=== PATIENT | female | born 1985 | race Caucasian/White ===

== ENCOUNTER 2017-02-02 08:58 | Emergency (ER) | payer MEDICAID ==
[~2017-02-02] VITALS: Ht 170.2 cm; Wt 108.9 kg
[~2017-02-02 08:58] MED LIST: FLEXERIL10 MG PO; NAPROSYN 500MG500 MG PO; PRENATAL PLUS1 TA1 PO; SEPTRA DS 800 M1 TAB PO
--- OUTSIDE RECORDS SUMMARY | 2017-02-02 09:04 | External Medical Summary Rpt | CCD ---
Author Author , [employer] Organization [employer] Address Unknown Phone [email or web address] Immunization Name Date Rout CVX Reac Dose Comm Prov Is Faci e tion ent ider Refu lity Give sed n Tdap 12-0 115 999 Hist H141 No H141 , 7-20 oric Adso 10 al rbed Info rmat ion - Sour ce Unsp ecif ied
--- OUTSIDE RECORDS SUMMARY | 2017-02-02 09:04 | External Medical Summary Rpt | CCD ---
Demographics Preferred Language Senegalese Marital Status Unknown Christian Affiliation Unknown Race Unknown Ethnic Group Unknown Author Author , [employer] STROUD Address Unknown Phone [email or web address] Care Team Providers Care Credit Products Officer Name Role Phone [facility] Unavailable Unavailable INC, [facility] Purpose Continuity of Care Document - 12-03-2010 through 2016 Medications Na ND Rx Da Fi Fi Am Da Di Ph RX Ph St me C No te ll ll ou ys ag ar # ys at rm s nt no ma ic us Or Da si cy ia de te s n re d AM 65 10 10 0 30 10 GR 19 PA Ac OX 86 -0 -0 .0 AN 14 TE ti IC 20 6- 6- 00 T 52 L ve IL 01 20 20 CO 8 LI 70 11 11 UN RA N 5 TY L [address] MG UG S CA IN PS C UL E ZA 13 10 10 12 30 30 GR 19 PA Ac TE 81 -0 -0 .0 AN 14 TE ti AN 10 6- 6- 00 T 52 L ve -P 58 20 20 CO 9 N 19 11 11 UN RA TA 0 TY L BL ET DR UG S IN C
--- OUTSIDE RECORDS SUMMARY | 2017-02-02 09:04 | External Medical Summary Rpt | CCD ---
Author Author , [employer] STROUD Address Unknown Phone [email or web address] Care Team Providers Care Investigator Claims Name Role Phone [facility] Unavailable Unavailable INC, [facility] Purpose Continuity of Care Document - 12-03-2010 through 2016 Problems Code Diagnosis DOS Provider Status N39.0 URINARY TRACT INFECTION, SITE NOT SPECIFIED Medications Na ND Rx Da Fi Fi Am Da Di Ph RX Ph St me C No te ll ll ou ys ag ar # ys at rm s nt no ma ic us Or Da si cy ia de te s n re d ZA 13 10 10 12 30 30 GR 19 PA Ac TE 81 -0 -0 .0 AN 14 TE ti AN 10 6- 6- 00 T 52 L ve -P 58 20 20 CO 9 N 19 11 11 UN RA TA 0 TY L BL ET DR UG S IN C AM 65 10 10 0 30 10 [...]
--- OUTSIDE RECORDS SUMMARY | 2017-02-02 09:04 | External Medical Summary Rpt | CCD ---
Author Author , [employer] Organization [employer] Address Unknown Phone [email or web address] Immunization Name Date Rout CVX Reac Dose Comm Prov Is Faci e tion ent ider Refu lity Give sed n Tdap 12-0 115 999 Hist H141 No H141 , 7-20 oric Adso 10 al rbed Info rmat ion - Sour ce Unsp ecif ied
--- OUTSIDE RECORDS SUMMARY | 2017-02-02 09:04 | External Medical Summary Rpt | CCD ---
Author Author , [employer] STROUD Address Unknown Phone [email or web address] Care Team Providers Care Biofuels Production Technician Name Role Phone [facility] Unavailable Unavailable INC, [facility] Purpose Continuity of Care [...]
--- OUTSIDE RECORDS SUMMARY | 2017-02-02 09:04 | External Medical Summary Rpt | CCD ---
Demographics Preferred Language Dominican Marital Status Unknown Lutheran Affiliation Unknown Race Unknown Ethnic Group Unknown Author Author , [employer] STROUD Address Unknown Phone [email or web address] Care Team Providers Care Tobacco Checkout Clerk Name Role Phone [facility] Unavailable Unavailable INC, [facility] Purpose Continuity of [...]
--- OUTSIDE RECORDS SUMMARY | 2017-02-02 09:05 | External Medical Summary Rpt ---
Author Author DENAAL Paulino, [employer] Organization [employer] Address Unknown Phone Unavailable Results UA Observa Value Referen Units Interpr Notes Date tion ce etation Range UA Yellow No No No No Jan 22 Color informa informa informa informa 2016 tion in tion in tion in tion in 12:20 source source source source AM data data data data UA Slightl Clear No Abnorma No Jan 22 Appear y Hazy informa l informa 2015 tion in tion in 12:20 source source AM data data UA Negativ Negativ No No No Jan 22 Glucose e e informa informa informa 2016 tion in tion in tion in 12:20 source source source AM data data data UA Negativ Negativ No No No Jan 22 Ketones e e informa informa informa 2016 tion in tion in tion in 12:20 source source source AM data data data UA Trace-i Negativ No Abnorma No Jan 22 Blood ntact e informa l informa 2016 tion in tion in 12:20 source source AM data data UA pH 7.0 5.0 - No No Referen Jan 22 8.0 informa informa ce 2016 tion in tion in range 12:20 source source valid AM data data for random specime ns only. UA Negativ Negativ No No No Jan 22 Protein e e informa informa informa 2016 tion in tion in tion in 12:20 source source source AM data data data UA 0.2 <=1 No No No Jan 22 Urobili E.U./dL E.U./dL informa informa informa 2016 nogen tion in tion in tion in 12:20 source source source AM data data data UA Negativ Negativ No No No Jan 22 Nitrite e e informa informa informa 2016 tion in tion in tion in 12:20 source source source AM data data data UA Leuk Small Negativ No Abnorma No Jan 22 Est e informa l informa 2016 tion in tion in 12:20 source source AM data data UA Spec 1.020 1.001 - No No Referen Jan 22 Grav 1.035 informa informa ce 2016 tion in tion in range 12:20 source source valid AM data data for random specime ns only. UA WBC 10-20 0 - 4 /HPF Abnorma No Jan 22 l informa 2016 tion in 12:20 source AM data UA RBC 0-2 0 - 3 /HPF No No Jan 22 informa informa 2016 tion in tion in 12:20 source source AM data data UA 1+ No No No No Jan 22 Squam informa informa informa informa 2016 Epi tion in tion in tion in tion in 12:20 source source source source AM data data data data UA Trace No No No No Jan 22 Bacteri informa informa informa informa 2016 a tion in tion in tion in tion in 12:20 source source source source AM data data data data
[2017-02-02 09:32] LABS: URINE BILIRUBIN - DIPSTICK NEGATIVE (NEG); URINE BLOOD NEGATIVE (NEG)
[2017-02-02] MEDS ORDERED: AUGMENTIN 875-1 EACH PO (09:37)
[2017-02-02] MEDS ORDERED: PYRIDIUM200 M2 PO (09:37)
[2017-02-02] MEDS ORDERED: FLONASE 50 MCG16 GM (09:37)
[2017-02-02 09:38] VITALS: BP 128/69
--- NOTE | 2017-02-02 09:38 | Urgent Treatment Center Report ---
History of Present Issue Date/Time Seen by Provider 02/02/17 0910 Visit Reason Pt arrived:Walked Presenting Problem:SINUS PRESSURE AND CONGESTION WITH A COUGH FOR A FEW DAYS. OF YESTERDAY PT STATES SHE THINKS SHE HAS A UTI. Location if Accident: Onset of symptoms date/time:/ or onset unknown for:MEDICAL HX UNKNOWN Have you (or family members/close friends) recently traveled outside the [place]? N If Yes, where/when: Have you had exposure to infectious disease within the past month? TB? Other? Specify: c/o "I think I have a sinus infection and UTI" Dyuria since yesterday associated w/ low back pain and urinary frequency. No fever, chills, N/V, abdominal pain. Urine might look darker but no odor. Hasn't taken or tried anything for symptoms. c/o sinus pressure and pain x 5 days. Reports she keeps rhinorrhea, nasal congestion and PND but 5 days ago, quit draining and feels blocked. Pain started. When she does occasionally have drainage, now thick and green. Mild cough. Hasn't taken or tried anything. Source patient Exam Limitations no limitations ALLERGIES Coded Allergies: No Known Allergies (07/15/16) History Medical History General CAD? No Angina: No SC: No Hypertension? No Hyperlipidemia? No CHF? No DVT? No PE? No COPD? No Asthma? No Anemia? No GERD? No Gastric ulcers? No GI Bleed? No Hernia? No Thyroid Problems? No Hypothyroidism? No CVA? No Seizures? No Diabetes? No Renal Insuffiency? No UTI? No Stones? No BPH? No GB Disease: Yes Nephritic Syndrome? No Asplenia? No Hepatitis? No Sickle Cell Disease? No Arthritis? No Migraines? No Cataracts? No Glaucoma? No MRSA? No HIV? No TB? No Anxiety? No Depression? No Cancer? No More? No Immunization HX DT/Tetanus UNKNOWN Flu THISFLUSEA Pneumonia NEVER Surgical Hx Previous Surgery?Y Tubal Ligation [employer] Hx LMP 3 Months Ago Family History Family HX Diabetes Yes CAD Yes Hypertension Yes Hyperlipidemia Yes Cancer Yes TB No Social History Smoking Hx Smoker: Former Smoker Tobacco: No Packs/day 1 1/2 - 2 Packs Alcohol Alcohol: No Review of Systems All Other Systems Reviewed and Negative Constitutional see HPI, denies malaise Eyes denies drainage ENT see HPI, ear pain ("not pain, more pressure"). denies: ear discharge, throat pain. Respiratory cough (mild, intermittent, nonprod), denies shortness of breath, denies wheezing Cardiovascular denies chest pain Gastrointestinal denies no symptoms reported Genitourinary see HPI. denies: discharge, abnormal vaginal bleeding, hematuria. Musculoskeletal see HPI, denies joint pain Skin denies rash Psychiatric/Neurological denies headache Physical Exam Vital Signs Vital Signs Date Time Temp Pulse Resp B/P Pulse O2 O2 Flow FiO2 Ox Delivery Rate 02/02 907 97.3 89 18 128/69 99 General Appearance normal appearance, no apparent distress Eye Exam - bilateral eye normal exam Ear, Nose, Throat romy EACs and TMs unremarkable, nasal congestion, normal pharynx, midl romy maxillary tenderness, moderate romy frontal TTP Neck non-tender, supple Respiratory Status No: respiratory distress, productive cough, non productive cough. Lung Sounds anterior: lungs clear. posterior: lungs clear. bilateral: lungs clear. Cardiovascular regular rate/rhythm, no peripheral edema, no murmur Gastrointestinal normal bowel sounds, non tender, soft, no suprapubic tenderness Back no CVA tenderness Neurologic alert Mental status normal mood/affect Skin normal color, warm/dry Lymphatic no adenopathy Medical Decision Making LABS/Meds/Orders Pt receiving controlled substance in ED? No Results/Orders Laboratory Tests 02/02/17 0910: Urine Color YELLOW, Urine Appearance CLEAR, Urine pH 7.0, Ur Specific [place] 1.020, Urine Protein NEGATIVE, Urine Ketones NEGATIVE, Urine Blood NEGATIVE, Urine Nitrate NEGATIVE, Urine Bilirubin NEGATIVE, Urine Urobilinogen 0.2, Ur Leukocyte Esterase TRACE H, Urine Glucose NEGATIVE Orders Procedure Date/time Status CULTURE, URINE 02/03 932 Active [facility] DIPSTICK 02/02 910 Complete Departure Departure Time of Disposition 33 Disposition DC Home or Self Care(routine) Clinical Impression Primary Impression: Frontal sinusitis Qualifiers: Chronicity: acute Recurrence: non-recurrent Qualified Code: J01.10 - Acute frontal sinusitis, unspecified Condition STABLE Referrals NO REFERRAL See primary care in [place] or return [facility] anytime for new or worsening symptoms, AND in 48 hours for urine culture results Patient Instructions DI for Dysuria -- Child, DI for Sinusitis Additional Instructions * Start antibiotic and be sure to take as ordered for the FULL length of time even if you feel better. Sinus infections do not get better overnight. It may take 2-3 days to notice much improvement so be sure to use conservative measures as discussed for symptoms. * sinus rinses as discussed * Flonase 2 sprays each nostril daily to help with nasal congestion, sinus and ear pressure/inflammation * Lots of fluids * Sleep elevated * Humidifier/vaporizer UTI * increase fluids, Water and NOT soda or tea * No antibiotic specifically for UTI just yet. Lets see what your urine culture shows. Could be due to irritation and not infection. BE SURE to follow up in 48- 72 hours. * pyridium as needed. Remember this will turn your urine ORANGE, this is normal but will stain whatever it gets on. this includes tears and contacts. Try not to wear contacts due to risk of staining orange. Discharge Counseling Counseled pt/family regarding diagnosis, test results, medications/RX, home care, follow up needs Prescriptions Current Visit Scripts Amoxicillin/Potassium Clav (Augmentin 875-125 Tablet) 1 EACH PO BID #20 TAB Fluticasone Propionate (Flonase 50 Mcg Nasal [place]) 2 SPRAY NA DAILY #1 BOT Phenazopyridine HCl (Pyridium) 200 MG PO TIDP PRN dysuria #6 TAB at 0946
== END 2017-02-02 09:38 | disposition home or self-care (01) ==
LOC: UTC 08:58
PROVIDERS: Nurse Practitioner Family
DX: J01.10 Acute frontal sinusitis, unspecified (principal); R30.0 Dysuria; R35.0 Frequency of micturition